=== PATIENT | male | born 1945 | race Caucasian/White ===

== ENCOUNTER → 2021-07-02 | Outpatient (CLI) | payer MEDICARE, OTHER ==
--- NOTE | 2021-07-03 13:49 | KCIC ---
Examination: MRI of the left ankle without contrast HISTORY: Chronic left ankle pain COMPARISON: None available TECHNIQUE: Multiplanar, multisequence MR imaging of the left ankle performed without contrast. FINDINGS: The attachment of the Achilles tendon to the calcaneus grossly appears intact. The attachment of the plantar fascia to the inferior aspect of the calcaneus grossly appears intact. The anterior extensor compartment tendons, flexor tendons grossly appears intact. There is moderate thickened appearance of the peroneus longus tendon at the level of the fibula with increased T2 signal could be a longitudin al tear. The alignment of the tarsal bones, tarsometatarsal joints grossly appears unremarkable. The peroneus brevis tendon grossly appears intact. Small amount of fluid identified about the peroneal te ndons with tendon sheath. Moderate increased focal T2 signal identified in the lateral calcaneus deep to the peroneal tendons likely trabecular edema. Fat is identified within the sinus tarsi. Moderate increased T2 signal or edema identified in the sof t tissue about the ankle joint. IMPRESSION: 1. Moderate thickened appearance of the peroneus longus tendon at the level of the fibula likely ten dinosis with increased T2 signal could be a longitudinal tear. 2. Moderate increased focal T2 signal identified in the lateral calcaneus deep to the peroneal tendo ns likely trabecular edema. 3. Moderate increased T2 signal or edema identified in the soft tissue about the ankle joint. Electronically signed by: Dominic Du MD (07/03/2021 1:47 PM) [id number]
== END ==
LOC: KCIC MRI 13:41
PROVIDERS: ATTEND Internal Medicine
DX: M25.572 Pain in left ankle and joints of left foot (principal); G89.29 Other chronic pain
CPT/HCPCS: 73721